=== PATIENT | male | born 1970 | race Caucasian/White ===

== ENCOUNTER 2020-02-18 10:51 | Emergency (ER) | payer SELFPAY ==
[2019-11-17 07:14] VITALS: BMI 21.2
[2020-02-18 10:52] VITALS: BP 148/128; PULSE 90; RESP 16; TEMP 36.1; O2SAT 100; BMI 22.9
--- NOTE | 2020-02-18 11:03 | ED.VIS.GEN ---
History of Present Illness Chief Complaint: Abd Pain Informant: Patient Narrative: Patient presents the emergency department with a chief complaint of abdominal pain. Patient states that last night around 6 PM he began to have vomiting and diarrhea. He states he had nausea cramping-like pain and then while having a bowel movement developed a sharp and burning pain approximately 2 inches below his appendectomy scar. States it radiates down towards his perineum. He denies any urinary symptoms. Vomiting and diarrhea continued this morning. No fevers. He is otherwise a healthy individual with no known medical issues. He has had a prior appendectomy. He denies any bruising or bulging in the area. Past Medical History - Allergies and Home Meds Allergies/Adverse Reactions: Allergies No Known Allergies Allergy (Verified 02/18/20 10:51) Primary Care Physician: Annika Pizano MD [STAFF PHYSICIAN] - 1 Week if not improving Past Medical History: None Surgical History: appendectomy Smoking Status: Current every day smoker Drugs: None Review of Systems General: Denies: Chills, Fever, Sweats Eyes: Denies: Visual changes - bilaterally, Diplopia ENT: Denies: Rhinorrhea, Sore throat Cardiovascular: Denies: Chest pain, Palpitations Respiratory: Denies: Dyspnea, Cough, Dyspnea on exertion Gastrointestinal: Reports: Abdominal pain, Nausea, Vomiting, Diarrhea. Denies: Melena, Hematochezia Genitourinary: Denies: Dysuria, Hematuria, Frequency Musculoskeletal: Denies: Back pain, Extremity Pain Skin: Denies: Rash, Wounds Neurological: Denies: Headache, Weakness, Numbness Physical Exam Vital Signs/Narrative: Vital Signs Temp Pulse Resp BP Pulse Ox 02/18/20 10:52 97 F L 90 16 148/128 H 100 Inital Vital Signs reviewed: Yes General: Well nourished, Well developed, No Acute Distress Head: Normocephalic, Atraumatic Eyes: Perrl, EOMI ENT: Moist mucous membranes, No rhinorrhea Neck: Supple, Nontender Cardiovascular: Regular rate, Regular rhythm, No murmurs Respiratory: No distress, CTA bilaterally, Chest nontender Abdomen: Soft, Nondistended, Normal bowel sounds, Tender - Tender to palpation approximately 2 inches below his appendectomy scar on the right. I do not appreciate a hernia. But he is point tender along the abdominal musculature. Back: Nontender, Normal Inspection Extremities: Nontender, No edema Skin: Normal color, No rash Neurological: Alert, Oriented x3, Cranial nerves II-XII grossly intact, Normal Strength, Normal Sensation Psychological: Normal affect, Normal Mood Diagnostic/Tx/Re-eval Clinical Impression(s) from Imaging Studies Abdomen/Pelvis CT 02/18/20 12:02 IMPRESSION: Small hepatic cysts. Electronically Signed: Talha Cruz, at 12:24 EDT , Service support , Laboratory Last Values WBC 9.2 K/mm3 (4.4-11.0) 02/18/20 11:10 RBC 5.13 M/mm3 (4.6-6.2) 02/18/20 11:10 Hgb 16.3 g/dL (13.0-16.5) 02/18/20 11:10 Hct 49.3 % (40-54) 02/18/20 11:10 MCV 96.1 fL (80-94) H 02/18/20 11:10 MCH 31.8 pg (27.0-32.0) 02/18/20 11:10 MCHC 33.1 g/dL (32-36) 02/18/20 11:10 RDW Std Deviation 46.5 fl (35.1-43.9) H 02/18/20 11:10 RDW Coeff of Rodolfo 13.2 % (11.6-14.6) 02/18/20 11:10 Plt Count 270 K/mm3 (150-450) 02/18/20 11:10 MPV 9.2 fl (6.2-12.0) 02/18/20 11:10 Immature Gran % (Auto) 0.300 % (0.0-0.9) 02/18/20 11:10 Neut % (Auto) 58.7 % (47-70) 02/18/20 11:10 Lymph % (Auto) 31.4 % (19-41) 02/18/20 11:10 [place] % (Auto) 8.1 % (0-10) 02/18/20 11:10 Eos % (Auto) 0.8 % (0-5) 02/18/20 11:10 Baso % (Auto) 0.7 % (0-1) 02/18/20 11:10 Absolute Neuts (auto) 5.4 X10^3/uL (2.0-7.7) 02/18/20 11:10 Absolute Lymphs (auto) 2.87 X10^3/uL (0.83-4.51) 02/18/20 11:10 Nucleated RBC % 0 % (0-5) 02/18/20 11:10 Sodium 138 mmol/L (136-145) 02/18/20 11:10 Potassium 3.9 mmol/L (3.5-5.1) 02/18/20 11:10 Chloride 105 mmol/L (98-107) 02/18/20 11:10 Carbon Dioxide 29.0 mmol/L (21.0-32.0) 02/18/20 11:10 Anion Gap 4 (5-15) L 02/18/20 11:10 BUN 16 mg/dL (7-18) 02/18/20 11:10 Creatinine 1.02 mg/dL (0.70-1.30) 02/18/20 11:10 Estim Creat Clear Calc 90.92 ml/min 02/18/20 11:10 Est GFR (MDRD) Af Amer 100 mL/min (>60) 02/18/20 11:10 Est GFR (MDRD) Non-Af 83 mL/min (>60) 02/18/20 11:10 BUN/Creatinine Ratio 15.7 RATIO (10-20) 02/18/20 11:10 Glucose 101 mg/dL (74-106) 02/18/20 11:10 Calcium 9.9 mg/dL (8.5-10.1) 02/18/20 11:10 Total Bilirubin 1.20 mg/dL (0.20-1.00) H 02/18/20 11:10 AST 18 U/L (15-37) 02/18/20 11:10 ALT 29 U/L (16-61) 02/18/20 11:10 Alkaline Phosphatase 77 U/L (45-117) 02/18/20 11:10 Total Protein 8.2 g/dL (6.4-8.2) 02/18/20 11:10 Albumin 4.7 g/dL (3.2-5.0) 02/18/20 11:10 Globulin 3.5 g/dL (2.2-4.2) 02/18/20 11:10 Albumin/Globulin Ratio 1.3 RATIO (0.9-2.4) 02/18/20 11:10 Lipase 140 U/L (73-393) 02/18/20 11:10 Urine Color Yellow (Yellow) 02/18/20 11:10 Urine Clarity Clear (Clear) 02/18/20 11:10 Urine pH 6.0 (5.0 - 8.0) 02/18/20 11:10 Ur Specific [place] 1.015 (1.002-1.030) 02/18/20 11:10 Urine Protein Negative mg/dl (Negative) 02/18/20 11:10 Urine Glucose (UA) Normal mg/dl (Normal) 02/18/20 11:10 Urine Ketones 15 mg/dl (Negative) H 02/18/20 11:10 Urine Occult Blood Negative /ul (Negative) 02/18/20 11:10 Urine Nitrite Negative (Negative) 02/18/20 11:10 Urine Bilirubin Negative mg/dL (Negative) 02/18/20 11:10 Urine Urobilinogen 1 mg/dl (Normal) H 02/18/20 11:10 Ur Leukocyte Esterase 25 /ul (Negative) H 02/18/20 11:10 Urine RBC 0-5 SEEN /hpf (0-5) 02/18/20 11:10 Urine WBC 0-5 SEEN /hpf (0-5) 02/18/20 11:10 Ur Squamous Epith Cells 0-5 SEEN /hpf (0-5) 02/18/20 11:10 Urine Bacteria 1+ /hpf (None Seen) 02/18/20 11:10 Urine Mucus 0 SEEN /hpf (<or=2+) 02/18/20 11:10 - Medical Decision Making Basic blood work shows a normal white blood cell count. Urinalysis negative. CT of the abdomen pelvis does not show any obvious pathology to explain the patient's right lower quadrant pain. At this point I think the patient most likely has a viral gastroenteritis. And he most likely has a abdominal wall strain. I do not appreciate a hernia both clinically or on CT. Patient will be given supportive care treatment. Follow-up with primary care if not improving return if worsening ED Disposition - Plan for ED Patient: Disposition: Home or Assisted Living Diagnosis: Gastroenteritis, Strain of abdominal wall Instructions: ED Strain Abdominal Muscle, ED Viral Gastroenteritis Prescriptions: Hydrocodone Bitart/Apap 5-325 [[place] 5MG-325MG] 1 tab PO Q6H PRN PRN 3 Days #10 tab PRN Reason: Pain Prescription Printed Ondansetron [Zofran Odt] 4 mg PO Q6H PRN PRN #15 tab PRN Reason: Nausea Prescription Printed Referrals: Annika Pizano MD [STAFF PHYSICIAN] - 1 Week if not improving
[2020-02-18] MEDS: 0.9% Normal Saline 1,000 ML 1000 ML IV (11:11)
[2020-02-18] MEDS: Ondansetron 4 MG/2 ML Vial IV (11:11)
[2020-02-18 11:12] VITALS: BP 148/128; PULSE 90; RESP 16; TEMP 36.1; O2SAT 100
[2020-02-18 11:23] LABS: Mucous, Urine 0 SEEN /hpf (<or=2+)
[2020-02-18 11:26] LABS: Absolute Lymphocyte Count 2.87 X10^3/uL (0.83-4.51); Absolute Neutrophil Count 5.4 X10^3/uL (2.0-7.7); Basophil# 0.06 X10^3/uL; Basophil% 0.7 % (0-1); Color, Urine Yellow (Yellow); Eosinophil# 0.07 X10^3/uL; Eosinophils% 0.8 % (0-5); Glucose, Dipstick Normal (Normal); Hematocrit 49.3 % (40-54); Hemoglobin 16.3 g/dL (13.0-16.5); Ketone-Dipstick 15 mg/dl (Negative); Leukocyte Esterase-Dipstick 25 /ul (Negative); Lymphocyte # 2.87 X10^3/ul (4.0); Lymphocyte % 31.4 % (19-41); Mean Corp Hgb Conc 33.1 g/dL (32-36); Mean Corpuscular Hgb 31.8 pg (27.0-32.0); Mean Corpuscular Volume 96.1 fL (80-94); Mean Platelet Vol. 9.2 fl (6.2-12.0); Monocyte# 0.74 X10^3/uL; Monocyte% 8.1 % (0-10); NRBC Flagged by Analyzer 0 % (0-5); Neutrophil # 5.38 X10^3/uL (2.7-7.7); Neutrophil % 58.7 % (47-70); Nitrite-Dipstick Negative (Negative); Occult Blood-Urine Negative /ul (Negative); Platelet Count 270 K/mm3 (150-450); Protein-Dipstick Negative (Negative); RBC Distribution Width CV 13.2 % (11.6-14.6); RBC Distribution Width SD 46.5 fl (35.1-43.9); Red Blood Count 5.13 M/mm3 (4.6-6.2); Specific Gravity, Urine 1.015 (1.002-1.030); Urine Bilirubin Dipstick Negative (Negative); Urine Clarity Clear (Clear); Urine Urobilinogen 1 mg/dl (Normal); White Blood Count 9.2 K/mm3 (4.4-11.0)
[2020-02-18 11:33] LABS: Bacteria 1+ /hpf (None Seen); Red Blood Cells-Urine 0-5 SEEN /hpf (0-5); Squamous Epithelial Cells - UA 0-5 SEEN /hpf (0-5); White Blood Cells 0-5 SEEN /hpf (0-5)
[2020-02-18 11:48] LABS: ALB/GLOB Ratio 1.3 RATIO (0.9-2.4); AST(SGOT) 18 U/L (15-37); Alanine Aminotransfer ALT/SGPT 29 U/L (16-61); Albumin, Serum 4.7 g/dL (3.2-5.0); Alkaline Phosphatase 77 U/L (45-117); Anion Gap 4 (5-15); BUN 16 mg/dL (7-18); BUN/Creat Ratio 15.7 RATIO (10-20); Calcium,Total 9.9 mg/dL (8.5-10.1); Chloride 105 mmol/L (98-107); Creatinine, Serum 1.02 mg/dL (0.70-1.30); EST Glomerular Filtration Rate 83 mL/min (>60); Est Glom Filt Rate - Afr Amer 100 mL/min (>60); Estimated Creatinine Clearance 90.92 ml/min; Globulin 3.5 g/dL (2.2-4.2); Glucose 101 mg/dL (74-106); Lipase 140 U/L (73-393); Potassium 3.9 mmol/L (3.5-5.1); Protein, Total 8.2 g/dL (6.4-8.2); Sodium Level 138 mmol/L (136-145)
--- NOTE | 2020-02-18 12:02 | CT_ITS ---
STUDY: CT ABDOMEN AND PELVIS WITH CONTRAST REASON FOR EXAM: Male, 49 years old. N/V/D SINCE LAST NIGHT. HX OF APPY RADIATION DOSAGE (If Supplied By Facility): CTDIvol = ( 11.65 ) mGy, DLP = ( 335.86 ) mGycm TECHNIQUE: Transaxial images were obtained from the dome of the diaphragm to the symphysis pubis without oral contrast. IV 100mL Isovue-300 was administered. Sagittal and coronal images were reconstructed. Individualized dose optimization techniques were used for this CT. COMPARISON: None. FINDINGS: There is a 5.9 mm calcified granuloma in the posterior medial segment of the right lower lobe. The visualized portions of the heart are within normal limits. Subcentimeters cyst in the upper midportion of the right lobe of the liver. There is also evidence of a 1.2 cm cyst in the liver. Cyst in the left lobe of the liver. Normal gallbladder and extrahepatic biliary system. Normal spleen. Normal pancreas. Normal bilateral adrenal glands. Normal right kidney. Normal left kidney. Normal visualized stomach. Normal small intestine. There are multiple colonic diverticula consistent with diverticulosis. The patient is status post appendectomy. There is scattered atherosclerotic calcification of the abdominal aorta, without a demonstrated aneurysm. Normal inferior vena cava. Normal retroperitoneum. Normal urinary bladder. Normal abdominal wall. There are mild degenerative changes of the visualized lumbar spine. CT/Abdomen/Pelvis W IV Cont ONLY IMPRESSION: Small hepatic cysts. Electronically Signed: Talha Cruz, at 12:24 EDT , Service support ,
[2020-02-18 12:39] VITALS: BP 130/60; PULSE 67; RESP 18; O2SAT 99
== END 2020-02-18 12:45 | disposition home or self-care (01) ==
PROVIDERS: Emergency Provider Emergency Medicine
DX: K52.9 Noninfective gastroenteritis and colitis, unspecified (principal); S39.011A Strain of muscle, fascia and tendon of abdomen, initial encounter; X58.XXXA Exposure to other specified factors, initial encounter; Y93.9 Activity, unspecified; Y92.9 Unspecified place or not applicable; F17.200 Nicotine dependence, unspecified, uncomplicated
CPT/HCPCS: 74177; 80053; 81001; 83690; 85025; 96361; 96374; 99283; J7030; Q9967; J2405

== ENCOUNTER 2020-10-13 16:03 | Emergency (ER) | payer OTHER, SELFPAY ==
[2020-10-13 16:05] VITALS: BP 142/69; PULSE 106; RESP 15; TEMP 37.3; O2SAT 97; BMI 22.9
--- NOTE | 2020-10-13 16:25 | ED.VIS.LOWEX ---
HPI History of Present Illness Chief Complaint: Lower Extremity Injury Informant: patient Occured/Mechanism Mechanism/Context: Yes injury Onset/Context/Timing Onset: Yesterday Timing: Continuous Current Severity: Mild Maximum Severity: Mild Associated Symptoms Associated Symptoms: Negative for Parasthesia Narrative Prior similar symptoms: No Recent Illness/Hospitalization: No PFSH [facility] Medical History (Updated 10/13/20 @ 16:[address] Gunnar Morales MD) Arthritis Hay fever Hemorrhoids Home Medications ondansetron 4 mg PO Q6H PRN PRN #15 tab 02/18/20 [Rx Last Taken Unknown] Allergy/AdvReac Type Severity Reaction Status Date / Time No Known Allergies Allergy Verified 10/13/20 16:06 Surgical History History of appendectomy History of tonsillectomy Social History Smoking Status: Current every day smoker alcohol intake: never ROS ROS ED ROS Narrative Patient denies any recent illness. Review of Systems ROS Unobtainable: Denies due to encephalopathy Constitutional Constitutional ED: Denies fever(s) Eyes Eyes: Denies change in vision ENT ENT ED: Denies ear pain or sore throat Cardiovascular Cardiovascular: Denies chest pain Respiratory/Chest Respiratory/Chest: Denies dyspnea Gastrointestinal Gastrointestinal: Denies abdominal pain, diarrhea, nausea or vomiting Genitourinary Genitourinary ED: Denies dysuria Musculoskeletal Musculoskeletal: Denies myalgias Integumentary Denies rash Neurologic Neurologic: Denies headache(s) Psychiatric Psychiatric: Denies depression Endocrine Endocrinology: Denies polyuria Hematologic/Lymphatic Hematologic/Lymphatic: Denies easy bruising Allergic/Immunologic Allergic/Immunologic ED: Denies urticaria EXAM Physical Exam Narrative Exam Narrative: Well-appearing middle-aged male. Vital signs stable afebrile. Exam unremarkable except tenderness to the anterior aspect of his right foot midportion. No gross bony deformity. Ankle nontender nonswollen normal range of motion. Achilles tendon intact. No swelling of the ankle. Normal DP pulse. Able to wiggle his toes. Normal touch sensation. Otherwise exam unremarkable. Const Vital Signs: 10/13/20 16:05 Temperature 99.1 F Temperature Source Temporal Pulse Rate 106 H Respiratory Rate 15 Blood Pressure 142/69 H Blood Pressure Mean 93 Pulse Ox 97 Oxygen Delivery Method Room Air HEENT normocephalic and atraumatic Eyes PERRL Neck full ROM and supple Thyroid: Negative for tender Chest Wall inspection of chest normal Resp normal respiratory effort and clear to auscultation bilaterally Cardio regular rate and regular rhythm GI non-tender and non-distended Auscultation: normoactive bowel sounds Palpation: soft Back/Spine no CVA tenderness Extremity normal to inspection Extremity Narrative: Except right foot anterior tenderness. No deformity. Neurovascular intact. Neuro oriented x3 Sensorium / Orientation: alert, oriented to person, oriented to place and oriented to time Psych mental status grossly normal Skin Rashes: no rashes MDM MDM MDM Narrative Medical decision making narrative: X-ray right foot. Radiography X-Ray: Read by ED Physician, Normal, No Fracture and Normal Bony Alignment Diagnostic Testing: Right foot x-ray 3 views interpreted by myself shows no acute abnormality. No fracture or dislocation. Went over the film with the patient. Discharge Plan Triage Chief Complaint: Lower Extremity Injury ED Provider: Gunnar Morales Dx/Rx/DC Orders Clinical Impression: Foot sprain Instructions: ED Foot Sprain Prescriptions: No Action ondansetron 4 MG tablet 4 mg PO Q6H PRN PRN (Reason: Nausea) Qty: 15 RF: 0 Primary Care Provider: Care Physician,No Primary Referrals: Farrukh Yung MD [STAFF PHYSICIAN] - 1 Week if not improving Care Physician,No Primary [Primary Care Provider] - Activity Restrictions/Additional Instructions: Ice and elevate your right foot decrease pain and swelling. Motrin and/or Tylenol for pain and swelling. Follow-up if this is not improving. At this time your x-rays are negative there is no signs of any broken bones. Disposition Disposition: Home, self care
--- NOTE | 2020-10-13 16:35 | RAD_ITS ---
STUDY: X-RAY - RIGHT FOOT CLINICAL: Male, 50 years old. STATES HE ROLLED HIS ANKLE EARLIER TODAY AND HAS PAIN TO THE OUTSIDE OF HIS RIGHT FOOT. TECHNIQUE: 3 view(s) of the foot. COMPARISON: None. FINDINGS: Normal talus, calcaneus, and tarsal bones. Normal visualized subtalar, talonavicular, calcaneocuboid, tarsal and tarsometatarsal articulations. Normal metatarsi. Normal metatarsophalangeal joint of the great toe. Normal tibial and fibular sesamoid bones. Normal interphalangeal joint of the great toe. Normal phalanges of the great toe. Normal second through fifth metatarsophalangeal joints. Normal interphalangeal joints and phalanges of the lesser toes. The soft tissue structures are unremarkable. There is no demonstrated fracture. RAD/Foot min 3 Views IMPRESSION: Normal x-ray examination of the foot. Electronically Signed: Duane Neville MD at 17:05 EDT , Service support ,
== END 2020-10-13 17:22 | disposition home or self-care (01) ==
PROVIDERS: Emergency Provider Emergency Medicine
DX: S93.601A Unspecified sprain of right foot, initial encounter (principal); X58.XXXA Exposure to other specified factors, initial encounter; Y93.9 Activity, unspecified; Y92.9 Unspecified place or not applicable; Y99.9 Unspecified external cause status; F17.200 Nicotine dependence, unspecified, uncomplicated
CPT/HCPCS: 73630; 99282

== ENCOUNTER 2020-11-29 14:28 | Emergency (ER) | payer SELFPAY ==
[2020-11-29 14:28] VITALS: BP 181/107; PULSE 64; RESP 18; TEMP 36.8; O2SAT 98; BMI 21.5
--- NOTE | 2020-11-29 14:46 | EX.ED.DYSGE1 ---
HPI History of Present Illness Chief Complaint: Nausea/Vomiting Informant: patient Onset/Context/Timing Onset: Today Current Severity: Moderate Maximum Severity: Moderate Narrative Narrative: Patient presents with nausea, vomiting, and diarrhea that woke him from sleep around 4 AM this morning. He reports having chills and hot flashes. He reports diffuse abdominal pain with rolling sensation. He denies blood in his vomitus or stool. Past medical history: Arthritis [facility] Medical History (Updated 11/29/20 @ 23:[address] Jing Delcid MD) Arthritis Hay fever Hemorrhoids Home Medications dicyclomine 10 mg PO TID PRN #14 cap 11/29/20 [Rx Last Taken Unknown] ondansetron 4 mg PO Q8H PRN #10 tab 11/29/20 [Rx Last Taken Unknown] Allergy/AdvReac Type Severity Reaction Status Date / Time No Known Allergies Allergy Verified 11/29/20 14:31 Surgical History History of appendectomy History of tonsillectomy Social History Smoking Status: Current every day smoker tobacco type: cigarettes alcohol intake: never ROS ROS ED Constitutional Constitutional ED: Reports chills, fever(s) and subjective Eyes Eyes: Denies change in vision ENT ENT ED: Denies sore throat Cardiovascular Cardiovascular: Denies chest pain Respiratory/Chest Respiratory/Chest: Denies cough or dyspnea Gastrointestinal Gastrointestinal: Reports abdominal pain, diarrhea, nausea and vomiting Genitourinary Genitourinary ED: Denies dysuria Musculoskeletal Musculoskeletal: Denies back pain Integumentary Denies rash Neurologic Neurologic: Denies headache(s) or weakness Psychiatric Psychiatric: Denies anxiety or depression Endocrine Endocrinology: Denies polydipsia or polyuria Allergic/Immunologic Allergic/Immunologic ED: Denies urticaria EXAM Physical Exam Const Vital Signs: 11/29/20 14:28 11/29/20 16:28 11/29/20 17:10 Temperature 98.2 F Temperature Source Temporal Pulse Rate 64 95 69 Respiratory Rate 18 16 18 Blood Pressure 181/107 H 129/74 H 113/68 Blood Pressure Mean 131 92 83 Pulse Ox 98 99 97 Oxygen Delivery Method Room Air Room Air Room Air 11/29/20 18:01 Temperature Temperature Source Pulse Rate 72 Respiratory Rate 16 Blood Pressure 120/65 Blood Pressure Mean Pulse Ox 98 Oxygen Delivery Method Positive well nourished and well developed General Appearance ED: well developed HEENT Reports normocephalic and head/scalp atraumatic Eyes PERRL and EOMs intact bilaterally Neck supple Chest Wall inspection of chest normal and palpation of chest normal Resp normal respiratory effort and clear to auscultation bilaterally Cardio regular rate and regular rhythm GI Auscultation: hypoactive bowel sounds Palpation: soft and tender other (Mild diffuse tenderness location. No guarding or rebound.) Extremity normal to inspection Neuro oriented x3 and no sensory deficits noted Sensorium / Orientation: alert Motor Exam: strength 5/5 throughout Psych mental status grossly normal Skin no rashes or lesions noted MDM MDM MDM Narrative Medical decision making narrative: Patient was given morphine and Zofran for pain and nausea. IV fluids, labs, urinalysis are obtained. Lab Data Attestation: I reviewed the patient's lab results. Labs: Laboratory Results - last 24 hr 11/29/20 11/29/20 11/29/20 14:35 14:35 15:05 WBC 12.2 H RBC 5.07 Hgb 15.7 Hct 46.0 MCV 90.7 MCH 31.0 MCHC 34.1 RDW Std Deviation 41.6 RDW Coeff of Rodolfo 12.6 Plt Count 283 MPV 9.0 Immature Gran % (Auto) 0.400 Neut % (Auto) 85.1 H Lymph % (Auto) 10.0 L [place] % (Auto) 4.2 Eos % (Auto) 0.0 Baso % (Auto) 0.3 Absolute Neuts (auto) 10.4 H Absolute Lymphs (auto) 1.22 Nucleated RBC % 0 Sodium 137 Potassium 3.9 Chloride 105 Carbon Dioxide 23.0 Anion Gap 9 BUN 16 Creatinine 0.86 Estim Creat Clear Calc 99.99 Est GFR (MDRD) Af Amer 121 Est GFR (MDRD) Non-Af 100 BUN/Creatinine Ratio 18.5 Glucose 137 H Calcium 9.3 Total Bilirubin 1.00 Direct Bilirubin 0.22 AST 20 ALT 28 Alkaline Phosphatase 84 Total Protein 7.9 Albumin 4.5 Globulin 3.4 Lipase 48 L Urine Color Yellow Urine Clarity Sl. Cloudy Urine pH 6.0 Ur Specific [place] 1.025 Urine Protein 30 H Urine Glucose (UA) Normal Urine Ketones 150 A* Urine Occult Blood 10 H Urine Nitrite Negative Urine Bilirubin Negative Urine Urobilinogen Normal Ur Leukocyte Esterase 25 H Urine RBC 0-5 SEEN Urine WBC 0 SEEN Ur Squamous Epith Cells 0 SEEN Urine Bacteria RARE Urine Mucus RARE Treatment and Re-Evaluation Comments:: Nausea is improved on repeat evaluation. Labs are reviewed and largely unremarkable. He does have evidence of dehydration. Patient stated the pain medication helped for short time but then his pain worsened. He was given 0.5 mg of Dilaudid, IM Bentyl, and a dose of Protonix. At this time patient is tolerating ice chips and does feel improved. He will be discharged with prescriptions for Bentyl and Zofran. Disposition: Discharge Impression: 1. Gastroenteritis 2. Mild dehydration Discharge Plan Triage Chief Complaint: Nausea/Vomiting ED Provider: Jing Delcid Dx/Rx/DC Orders Clinical Impression: Gastroenteritis, Dehydration, mild Instructions: ED Dehydration (Adult), ED Vomiting and Diarrhea ... Prescriptions: New ondansetron 4 mg tablet,disintegrating 4 mg PO Q8H PRN (Reason: nausea and vomiting) Qty: 10 RF: 0 dicyclomine 10 mg capsule 10 mg PO TID PRN (Reason: abd pain) Qty: 14 RF: 0 Primary Care Provider: Care Physician,No Primary Referrals: Pankaj,Monse, DO [NON-STAFF] - As Needed Care Physician,No Primary [Primary Care Provider] - Disposition Disposition: Home, Self Care Discharge Date/Time: 11/29/20 18:02
[2020-11-29 14:52] LABS: Absolute Lymphocyte Count 1.22 X10^3/uL (0.83-4.51); Absolute Neutrophil Count 10.4 X10^3/uL (2.0-7.7); Basophil# 0.04 X10^3/uL; Basophil% 0.3 % (0-1); Hemoglobin 15.7 g/dL (13.0-16.5); Lymphocyte # 1.22 X10^3/ul (0.83-4.51); Mean Corp Hgb Conc 34.1 g/dL (32-36); Mean Corpuscular Volume 90.7 fL (80-94); Monocyte# 0.51 X10^3/uL; Monocyte% 4.2 % (0-10); NRBC Flagged by Analyzer 0 % (0-5); Neutrophil # 10.35 X10^3/uL (2.7-7.7); Neutrophil % 85.1 % (47-70); Platelet Count 283 K/mm3 (150-450); RBC Distribution Width CV 12.6 % (11.6-14.6); RBC Distribution Width SD 41.6 fl (35.1-43.9); Red Blood Count 5.07 M/mm3 (4.6-6.2); White Blood Count 12.2 K/mm3 (4.4-11.0)
[2020-11-29 15:03] LABS: AST(SGOT) 20 U/L (15-37); Alanine Aminotransfer ALT/SGPT 28 U/L (16-61); Albumin, Serum 4.5 g/dL (3.2-5.0); Alkaline Phosphatase 84 U/L (45-117); Anion Gap 9 (5-15); BUN 16 mg/dL (7-18); BUN/Creat Ratio 18.5 RATIO (10-20); Bilirubin, Direct 0.22 mg/dL (0.00-0.30); Calcium,Total 9.3 mg/dL (8.5-10.1); Chloride 105 mmol/L (98-107); Creatinine, Serum 0.86 mg/dL (0.70-1.30); EST Glomerular Filtration Rate 100 mL/min (>60); Est Glom Filt Rate - Afr Amer 121 mL/min (>60); Estimated Creatinine Clearance 99.99 ml/min; Globulin 3.4 g/dL (2.2-4.2); Glucose 137 mg/dL (74-106); Lipase 48 U/L (73-393); Potassium 3.9 mmol/L (3.5-5.1); Protein, Total 7.9 g/dL (6.4-8.2); Sodium Level 137 mmol/L (136-145)
[2020-11-29] MEDS: Ondansetron 4 MG/2 ML Vial IV (15:03)
[2020-11-29] MEDS: 0.9% Normal Saline 1,000 ML 1000 ML IV (15:03)
[2020-11-29] MEDS: Morphine 4 MG/ML Syringe IV (15:03)
[2020-11-29 15:10] LABS: Squamous Epithelial Cells - UA 0 SEEN /hpf (0-5); White Blood Cells 0 SEEN /hpf (0-5)
[2020-11-29 15:12] LABS: Color, Urine Yellow (Yellow); Glucose, Dipstick Normal (Normal); Leukocyte Esterase-Dipstick 25 /ul (Negative); Nitrite-Dipstick Negative (Negative); Occult Blood-Urine 10 /ul (Negative); Protein-Dipstick 30 mg/dl (Negative); Specific Gravity, Urine 1.025 (1.002-1.030); Urine Bilirubin Dipstick Negative (Negative); Urine Clarity Sl. Cloudy (Clear); Urine Urobilinogen Normal (Normal)
[2020-11-29 15:13] LABS: Ketone-Dipstick 150 mg/dl (Negative)
[2020-11-29 15:23] LABS: Bacteria RARE /hpf (None Seen); Mucous, Urine RARE /hpf (<or=2+); Red Blood Cells-Urine 0-5 SEEN /hpf (0-5)
[2020-11-29] MEDS: 0.9% Normal Saline 1,000 ML 150 ML IV (16:14)
[2020-11-29] MEDS: HYDROmorphone 0.5 MG/0.5 ML SYRINGE IV (16:16)
[2020-11-29] MEDS: Dicyclomine 20 MG/2 ML Vial IM (16:18)
[2020-11-29 16:28] VITALS: BP 129/74; PULSE 95; RESP 16; O2SAT 99
[2020-11-29 17:10] VITALS: BP 113/68; PULSE 69; RESP 18; O2SAT 97
[2020-11-29 18:01] VITALS: BP 120/65; PULSE 72; RESP 16; O2SAT 98
== END 2020-11-29 18:02 | disposition home or self-care (01) ==
PROVIDERS: Emergency Provider Emergency Medicine
DX: K52.9 Noninfective gastroenteritis and colitis, unspecified (principal); E86.0 Dehydration; F17.210 Nicotine dependence, cigarettes, uncomplicated; Z87.19 Personal history of other diseases of the digestive system
CPT/HCPCS: 80048; 80076; 81001; 83690; 85025; 96361; 96365; 96372; 96375; 99282; J7030; A4216; J2405

== ENCOUNTER 2023-10-29 15:14 | Emergency (ER) | payer MEDICAID, SELFPAY ==
[2023-10-29 15:14] VITALS: BP 134/95; PULSE 96; RESP 18; TEMP 36.6; O2SAT 97; BMI 23.6
--- NOTE | 2023-10-29 16:12 | EDS_ITS ---
HPI <JESSIE Miles - Last Filed: 10/29/23 21:06> HPI - URI History of Present Illness Chief Complaint: Ear Problem Narrative Narrative: Patient presenting today with concerns for bilateral ear infections. He reports that every year he gets an ear infection and usually receives antibiotics which helps his symptoms. He reports that he has had nasal congestion and sinus pressure over the last 4 days. He has noticed green-colored discharge coming from his right ear. He denies any fevers, chills, trauma to his ear canals, and decreased hearing. He did find some Augmentin that was leftover and has been taking that twice a day for the past 2 days. ROS <JESSIE Miles - Last Filed: 10/29/23 21:06> ROS ED Constitutional Constitutional ED: Denies chills or fever(s) ENT ENT ED: Reports ear pain bilateral, nasal congestion and sinus pressure Cardiovascular Cardiovascular: Denies chest pain Respiratory/Chest Respiratory/Chest: Denies cough or dyspnea Gastrointestinal Gastrointestinal: Denies abdominal pain Integumentary Denies rash Neurologic Neurologic: Denies weakness PFSH <JESSIE Miles - Last Filed: 10/29/23 21:06> [facility] Medical History (Updated 10/29/23 @ 16:40 by JESSIE Miles) Hay fever Hemorrhoids Arthritis Home Medications ?Medication ?Instructions ?Recorded ?Last Taken ?Type dicyclomine 10 mg capsule 10 mg PO TID PRN abd pain #14 caps 11/29/20 Unknown Rx ondansetron 4 mg disintegrating 4 mg PO Q8H PRN nausea and 11/29/20 Unknown Rx tablet vomiting #10 tabs amoxicillin 875 mg-potassium 1 tab PO BID #10 tabs 10/29/23 Unknown Rx clavulanate 125 mg tablet Allergy/AdvReac Type Severity Reaction Status Date / Time No Known Allergies Allergy Verified 10/29/23 15:14 Surgical History History of appendectomy History of tonsillectomy Social History Smoking Status: Current every day smoker tobacco type: cigarettes alcohol intake: never EXAM <JESSIE Miles - Last Filed: 10/29/23 21:06> Physical Exam Const Vital Signs: 10/29/23 15:14 10/29/23 16:43 Temperature 97.9 F 98 F Temperature Source Temporal Pulse Rate 96 78 Respiratory Rate 18 17 Blood Pressure 134/95 H 117/87 H Blood Pressure Mean 108 97 Pulse Ox 97 97 Oxygen Delivery Method Room Air Positive well nourished, well developed and no apparent distress General Appearance ED: well developed HEENT Reports normocephalic and head/scalp atraumatic HEENT Narrative: Right-sided TM with effusion and slight erythema. Left TM clear Mouth ED: Yes moist mucous membranes normal Throat: posterior oropharynx normal Eyes PERRL and EOMs intact bilaterally Neck full ROM and supple Chest Wall inspection of chest normal Resp normal respiratory effort and clear to auscultation bilaterally Cardio regular rate and regular rhythm Back/Spine normal ROM and normal to inspection Extremity normal to inspection and full ROM Neuro oriented x3, CN's II-XII intact bilaterally, moves all extremities, no focal motor deficits and no sensory deficits noted Sensorium / Orientation: awake and alert Psych mental status grossly normal and thought process normal Skin no rashes or lesions noted and no wounds <Solo Vo MD - Last Filed: 10/29/23 22:26> Physical Exam Const Vital Signs: 10/29/23 15:14 10/29/23 16:43 Temperature 97.9 F 98 F Temperature Source Temporal Pulse Rate 96 78 Respiratory Rate 18 17 Blood Pressure 134/95 H 117/87 H Blood Pressure Mean 108 97 Pulse Ox 97 97 Oxygen Delivery Method Room Air [facility] <JESSIE Miles - Last Filed: 10/29/23 21:06> [facility] Narrative Medical decision making narrative: Patient presenting with concerns for a bilateral ear infection. He is well- appearing and in no acute distress, his vitals are unremarkable. He is nontoxic-appearing. He does have an otitis media with effusion on the right side, left TM is clear. He did report having discharge coming from his ear, I am not appreciating any discharge or TM rupture. No signs of otitis externa. Given he has already taken antibiotics for 2 days but is now out of them, I will give him a prescription for Augmentin to complete the course. He does not have a PCP and I have given him a referral. I have also given him an ENT referral that he can follow-up with if needed. Patient is comfortable with this plan and is discharged home in stable condition. <Solo Vo MD - Last Filed: 10/29/23 22:26> [facility] MDM Narrative Medical decision making narrative: Patient presenting with concerns for a bilateral ear infection. He is well- appearing and in no acute distress, his vitals are unremarkable. He is nontoxic-appearing. He does have an otitis media with effusion on the right side, left TM is clear. He did report having discharge coming from his ear, I am not appreciating any discharge or TM rupture. No signs of otitis externa. Given he has already taken antibiotics for 2 days but is now out of them, I will give him a prescription for Augmentin to complete the course. He does not have a PCP and I have given him a referral. I have also given him an ENT referral that he can follow-up with if needed. Patient is comfortable with this plan and is discharged home in stable condition. Dr. Vo: I have personally performed a face to face assessment of the patient and have reviewed the PRIYANKA Note. I performed a substantive portion of the visit including all aspects of the following. My gil findings include: History is right ear pain, history of frequent infections. Smoker. Exam is afebrile. Vital signs noted. No mastoid tenderness or erythema right. Positive effusion with minimal TM erythema, right. Medical Decision Making: Patient has already started antibiotics. He was written a prescription for the remainder of an antibiotic course. Given his effusion and frequent ear infections, he was referred to otolaryngology. No feel he requires any laboratory work or imaging. Disposition is discharged home in stable condition. Other additions or changes: [None] Discharge Plan Triage Chief Complaint: Ear Problem ED Midlevel Provider: Sue Galvez ED Provider: Solo Vo Dx/Rx/DC Orders Clinical Impression: Acute otitis media with effusion, Acute sinusitis Instructions: ED Otitis Media Adult Prescriptions: New amoxicillin-pot clavulanate 875-125 mg tablet 1 tab PO BID Qty: 10 0RF No Action ondansetron 4 mg tablet,disintegrating 4 mg PO Q8H PRN (Reason: nausea and vomiting) Qty: 10 0RF dicyclomine 10 mg capsule 10 mg PO TID PRN (Reason: abd pain) Qty: 14 0RF Primary Care Provider: Care Physician,No Primary Referrals: Abundio Kirby MD [Med Staff - Active Staff] - 1 Week if not improving Du Lomax MD [Med Staff - Battery Hand] - As Needed Care Physician,No Primary [Primary Care Provider] - Activity Restrictions/Additional Instructions: Follow-up with ENT if no improvement of your symptoms. Return for any worsening of your symptoms. Print Language: Swedish Disposition Disposition: Home, Self Care Discharge Date/Time: 10/29/23 16:53
[2023-10-29 16:43] VITALS: BP 117/87; PULSE 78; RESP 17; TEMP 36.6; O2SAT 97
== END 2023-10-29 16:53 | disposition home or self-care (01) ==
PROVIDERS: Emergency Provider Emergency Medicine; Visit Provider Emergency Medicine
DX: H65.90 Unspecified nonsuppurative otitis media, unspecified ear (principal); J01.90 Acute sinusitis, unspecified; F17.210 Nicotine dependence, cigarettes, uncomplicated
CPT/HCPCS: 99282

== ENCOUNTER 2023-11-16 22:42 | Emergency (ER) | payer MEDICAID, SELFPAY ==
[2023-11-16 22:43] VITALS: BP 180/95; PULSE 94; RESP 16; TEMP 36.4; O2SAT 98; BMI 23.6
--- NOTE | 2023-11-16 22:55 | EKG12_ITS ---
Test Reason : CP Blood Pressure : / mmHG Vent. Rate : 085 BPM Atrial Rate : 085 BPM P-R Int : 182 ms QRS Dur : 098 ms QT Int : 358 ms P-R-T Axes : 072 077 051 degrees QTc Int : 426 ms Normal sinus rhythm Normal ECG Confirmed by Rocky Crowell ([id number]), market editor ALMA KRAMER ([id number]) on 11/20/2023 6:06:00 AM Referred By: HECTOR Confirmed By:Rocky Crowell
[2023-11-16 23:31] LABS: Absolute Lymphocyte Count 3.19 X10^3/uL (0.83-4.51); Absolute Neutrophil Count 6.9 X10^3/uL (2.0-7.7); Basophil# 0.09 X10^3/uL; Basophil% 0.8 % (0-1); Eosinophil# 0.13 X10^3/uL; Eosinophils% 1.1 % (0-5); Hematocrit 42.9 % (40-54); Hemoglobin 14.5 g/dL (13.0-16.5); Lymphocyte # 3.19 X10^3/ul (0.83-4.51); Lymphocyte % 28.1 % (19-41); Mean Corp Hgb Conc 33.8 g/dL (32-36); Mean Corpuscular Hgb 31.8 pg (27.0-32.0); Mean Corpuscular Volume 94.1 fL (80-94); Mean Platelet Vol. 9.4 fl (6.2-12.0); Monocyte# 1.01 X10^3/uL; Monocyte% 8.9 % (0-10); NRBC Flagged by Analyzer 0 % (0-5); Neutrophil % 60.8 % (47-70); Platelet Count 271 K/mm3 (150-450); RBC Distribution Width CV 13.2 % (11.6-14.6); Red Blood Count 4.56 M/mm3 (4.6-6.2); White Blood Count 11.4 K/mm3 (4.4-11.0)
--- NOTE | 2023-11-16 23:35 | RAD_ITS ---
EXAM: XR CHEST, 2 VIEWS CLINICAL INDICATION: chest pain TECHNIQUE: Frontal and lateral views of the chest. COMPARISON: Left rib series 06/14/2016 FINDINGS: LUNGS AND PLEURAL SPACES: Unremarkable. No consolidation or edema. No pneumothorax. No effusion. HEART: Unremarkable. Cardiac silhouette not enlarged. MEDIASTINUM: Central airways and mediastinal contour are unremarkable. BONES/JOINTS: Unremarkable. No acute fracture. SOFT TISSUES: Unremarkable. RAD/Chest PA and Lateral IMPRESSION: No radiographic evidence of acute cardiopulmonary disease. Electronically Signed: Amos Khanna MD at 0:20 EDT ,
[2023-11-16 23:42] VITALS: BP 132/76; PULSE 67; RESP 18; O2SAT 97
[2023-11-16 23:50] LABS: Anion Gap 2 (5-15); BUN 15 mg/dL (7-18); Calcium,Total 9.2 mg/dL (8.5-10.1); Chloride 107 mmol/L (98-107); Creatinine, Serum 0.94 mg/dL (0.70-1.30); EST Glomerular Filtration Rate 90 mL/min (>60); Est Glom Filt Rate - Afr Amer 108 mL/min (>60); Estimated Creatinine Clearance 94.92 ml/min; Glucose 111 mg/dL (74-106); Magnesium 2.2 mg/dL (1.6-2.6); Potassium 3.6 mmol/L (3.5-5.1); Sodium Level 138 mmol/L (136-145); Troponin-I HS 5 pg/mL (3.0-78.0)
[2023-11-17] VITALS: BP 139/89; PULSE 55; RESP 18; O2SAT 97
[2023-11-17 01:00] VITALS: BP 139/89; PULSE 63; RESP 13; O2SAT 98
[2023-11-17 01:37] LABS: Troponin-I HS 6 pg/mL (3.0-78.0)
--- NOTE | 2023-11-17 01:44 | EX.ED.DYSGE1 ---
HPI History of Present Illness Chief Complaint: Chest Pain Informant: patient Narrative Narrative: Patient is a 53-year-old male with past medical history of smoking. He states that this evening he sat down around 9 PM and had a peanut butter sandwich. He states that after doing this he noticed intermittent left-sided chest pressure/discomfort. He states it would last for a few seconds and then resolved. He denies any nausea vomiting or diaphoresis associated with this. He denies any shortness of breath associate with that as well. He states his father has a history of heart attack and he had concern he could have a cardiac event and therefore comes in for evaluation [facility] Medical History (Updated 11/17/23 @ 01:[address] Barber Castillo, DO) Hay fever Hemorrhoids Arthritis Home Medications ?Medication ?Instructions ?Recorded ?Last Taken ?Type dicyclomine 10 mg capsule 10 mg PO TID PRN abd pain #14 caps 11/29/20 Unknown Rx ondansetron 4 mg disintegrating 4 mg PO Q8H PRN nausea and 11/29/20 Unknown Rx tablet vomiting #10 tabs amoxicillin 875 mg-potassium 1 tab PO BID #10 tabs 10/29/23 Unknown Rx clavulanate 125 mg tablet Allergy/AdvReac Type Severity Reaction Status Date / Time No Known Allergies Allergy Verified 11/16/23 22:42 Surgical History History of appendectomy History of tonsillectomy Social History Smoking Status: Heavy Smoker (>10/day) alcohol intake: never ROS ROS ED Constitutional Constitutional ED: Denies chills or fever(s) ENT ENT ED: Denies sore throat Cardiovascular Cardiovascular: Reports chest pain; Denies palpitations or racing heartbeat Respiratory/Chest Respiratory/Chest: Denies cough or dyspnea Gastrointestinal Gastrointestinal: Denies abdominal pain, diarrhea, nausea or vomiting Genitourinary Genitourinary ED: Denies dysuria Musculoskeletal Musculoskeletal: Denies back pain or myalgias Integumentary Denies rash Neurologic Neurologic: Denies headache(s) Hematologic/Lymphatic Hematologic/Lymphatic: Denies easy bleeding or easy bruising EXAM Physical Exam Const Vital Signs: 11/16/23 22:43 11/16/23 22:55 11/16/23 23:42 Temperature 97.6 F L Temperature Source Temporal Pulse Rate 94 67 Respiratory Rate 16 18 Respiratory Effort Normal Blood Pressure 180/95 H 132/76 H Blood Pressure Mean 123 94 Pulse Ox 98 97 Oxygen Delivery Method Room Air Room Air 11/17/23 00:00 11/17/23 01:00 11/17/23 01:59 Temperature 98 F Temperature Source Pulse Rate 55 L 63 60 Respiratory Rate 18 13 15 Respiratory Effort Blood Pressure 139/89 H 139/89 H 135/83 H Blood Pressure Mean 105 105 100 Pulse Ox 97 98 99 Oxygen Delivery Method Room Air Room Air Positive well nourished and well developed General Appearance ED: well developed; Negative for pallor HEENT HEENT Narrative: Normocephalic atraumatic Eyes PERRL and EOMs intact bilaterally General Eye ED: Negative for scleral icterus Neck supple and no JVD Chest Wall Chest Narrative: There is mild reproducible midsternal to left anterior chest wall pain with palpation. No bony deformity or crepitus noted Resp normal respiratory effort and clear to auscultation bilaterally Cardio regular rate and regular rhythm Rate: other Other Details: Heart is regular rate and rhythm without murmurs rubs or gallops Radial and carotid pulses are equal and symmetric GI normal to inspection, nondistended, normoactive bowel sounds, non-tender, non-distended and no masses Auscultation: normoactive bowel sounds Palpation: soft Extremity normal to inspection Extremity Narrative: No asymmetric edema or pitting edema negative Homans' sign bilaterally Neuro oriented x3, CN's II-XII intact bilaterally and no sensory deficits noted Sensorium / Orientation: alert Motor Exam: strength 5/5 throughout Psych mental status grossly normal Skin no rashes or lesions noted General Skin Exam: Negative for jaundice or pallor MDM MDM MDM Narrative Medical decision making narrative: Patient presented to the ER hypertensive otherwise with stable vitals. His presentation cardiac event is atypical in nature but he does have risk factors of being a man of age 41 smoking and family history of cardiovascular disease. Secondary to this a basic cardiac workup was obtained. EKG was sinus rhythm without ectopy or ischemic changes. Chest x-ray revealed no acute lung pathology and the initial troponin was 5 and the delta increase by a value of 1 to 6 which is not clinically significant. On repeat evaluation he is resting comfortably he remains chest pain-free and therefore is otherwise safe for discharge History & Record Review Discussion w/independent historian: Patient Lab Data Attestation: I reviewed the patient's lab results. Labs: Laboratory Results - last 24 hr 11/16/23 11/17/23 22:55 01:00 WBC 11.4 H RBC 4.56 L Hgb 14.5 Hct 42.9 MCV 94.1 H MCH 31.8 MCHC 33.8 RDW Std Deviation 46.0 H RDW Coeff of Rodolfo 13.2 Plt Count 271 MPV 9.4 Immature Gran % (Auto) 0.300 Neut % (Auto) 60.8 Lymph % (Auto) 28.1 [place] % (Auto) 8.9 Eos % (Auto) 1.1 Baso % (Auto) 0.8 Absolute Neuts (auto) 6.9 Absolute Lymphs (auto) 3.19 Nucleated RBC % 0 Sodium 138 Potassium 3.6 Chloride 107 Carbon Dioxide 29.0 Anion Gap 2 L BUN 15 Creatinine 0.94 Estim Creat Clear Calc 94.92 Est GFR (MDRD) Af Amer 108 Est GFR (MDRD) Non-Af 90 BUN/Creatinine Ratio 16.0 Glucose 111 H Calcium 9.2 Magnesium 2.2 Troponin I High Sens 5 6 Radiography Diagnostic Testing: Clinical Impression(s) from Imaging Studies Chest X-Ray 11/16/23 23:35 IMPRESSION: No radiographic evidence of acute cardiopulmonary disease. Electronically Signed: Amos Khanna MD at 0:20 EDT Reading Location ID and State: [address] [place] [address] Tel , Service support , Chest x-ray as interpreted by the emergency medicine physician reveals no acute infiltrate pneumothorax pleural effusion or widening of the mediastinum Discharge Plan Triage Chief Complaint: Chest Pain ED Provider: Barber Castillo Dx/Rx/DC Orders Clinical Impression: Nonspecific chest pain, Tobacco use Instructions: ED Chest Pain, Uncertain Cause Prescriptions: No Action ondansetron 4 mg tablet,disintegrating 4 mg PO Q8H PRN (Reason: nausea and vomiting) Qty: 10 0RF dicyclomine 10 mg capsule 10 mg PO TID PRN (Reason: abd pain) Qty: 14 0RF amoxicillin-pot clavulanate 875-125 mg tablet 1 tab PO BID Qty: 10 0RF Primary Care Provider: Care Physician,No Primary Referrals: Roshan Christine MD [Med Staff - Active Staff] - Care Physician,No Primary [Primary Care Provider] - Activity Restrictions/Additional Instructions: Your workup today showed no sign of acute cardiac event/heart damage. You do have moderate risk factors for heart disease however and therefore follow-up with your family doctor to discuss further testing or cardiology referral. Return to the ER should you have any further concerns Print Language: Sudanese Disposition Disposition: Home, Self Care Discharge Date/Time: 11/17/23 02:00
[2023-11-17 01:59] VITALS: BP 135/83; PULSE 60; RESP 15; TEMP 36.6; O2SAT 99
== END 2023-11-17 02:00 | disposition home or self-care (01) ==
PROVIDERS: Emergency Provider Emergency Medicine; Visit Provider Emergency Medicine
DX: R07.9 Chest pain, unspecified (principal); F17.200 Nicotine dependence, unspecified, uncomplicated
CPT/HCPCS: 71046; 80048; 83735; 84484; 85025; 93005; 99283; A4216